=== PATIENT | female | born 2000 | race Caucasian/White ===

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

== ENCOUNTER 2022-01-24 17:01 | Emergency (ER) | payer MEDICAID, SELFPAY ==
[2022-01-24 17:18] VITALS: BP 112/40; PULSE 119; RESP 20; TEMP 36.8; O2SAT 97; BMI 41.0
[2022-01-24 17:37] VITALS: BP 120/58; PULSE 106; TEMP 37.5; O2SAT 98
--- NOTE | 2022-01-24 17:46 | ED.SKABFB ---
HPI - Skin/Abscess/Foreign Bdy General Chief complaint: Skin/Abscess/Foreign Body Stated complaint: cyst Time Seen by Provider: 01/24/22 17:38 Source: patient Mode of arrival: ambulatory Limitations: no limitations History of Present Illness HPI narrative: 21-year-old female past medical history of a cyst presents today with 1 day history of painful bump on left buttock. Patient admits to shaving the area 1 week ago. Tried to drain the cyst plus night by squeezing with fingers, expressed some purulence material as well as blood. Pain has worsened in quality over the period of a day. Patient rates the pain as a 10/10, with the inability to sit on buttocks. Patient has taken Tylenol at home with minimal pain relief. Has admitted to subjective chills, fever, headache, and and redness around affected sidte. Denies shortness of breath, chest pain, nausea, vomiting, diarrhea, dysuria, hematuria, abnormal vaginal discharge, incontinence of stool or urine. In the past when patient has experienced this she had been placed on antibiotics, this was about 3 years ago. Patient not up-to-date on tetanus shot. Related Data Previous Rx's Medication Instructions Recorded cephalexin 500 mg tablet 500 mg PO Q6H 10 days #40 tabs 01/24/22 doxycycline hyclate 100 mg capsule 100 mg PO BID 10 days #20 caps 01/24/22 Allergies Allergy/AdvReac Type Severity Reaction Status Date / Time No Known Allergies Allergy Unverified 10/09/21 10:16 [No Known Allergies*] Review of Systems Review of Systems: Constitutional : + Fever, + Chills, Cardiovascular : No Chest Pain, No SOB Respiratory : No Dyspnea Gastrointestinal : No abdominal pain Musculoskeletal : No Joint Swelling Skin : No rash, positive abscess, no laceration Neuro : No Weakness, No Numbness Psych : No SI/HI Yes all other systems are reviewed and are negative [facility] Past Medical History Attestation statement: The following information was validated with the patient. Source: old records reviewed and nursing notes reviewed Medical History Hypercholesterolemia Social History Social History Advance Directives: No Advance Directives Information Provided: Yes Physical Exam Vital Signs: Vital Signs: Last Vital Signs Temp 99.5 F 01/24/22 17:37 Pulse 106 H 01/24/22 17:37 Resp 20 01/24/22 17:18 BP 120/58 L 01/24/22 17:37 Pulse Ox 98 01/24/22 17:37 O2 Del Method 01/24/22 17:37 BMI result Body Mass Index 41.0 vss Appearance: Alert.? Oriented X3.? No acute distress.? Appears uncomfortable on the exam table, unable to sit on buttocks. Head: Normocephalic, atraumatic, no step-offs or deformities Eyes: Pupils equal, round and reactive to light.? Extraocular eye movements intact. CVS: Normal heart rate and rhythm.? Pulses normal.? Respiratory: No respiratory distress.? Breath sounds normal.? Abdomen: Soft and nontender.? Skin: Skin warm and dry.? Normal skin color.? Normal skin turgor.? Positive small fluctuant area to left buttock with overlying erythema and warmth. Some surrounding induration, no crepitus Extremities: No lower extremity edema.? No calf ttp. 5/5 strength to bilateral upper and lower extremities Neuro: Oriented X 3.? No motor deficit.? No sensory deficit. CN 2-12 intact . NIH stroke scale of 0. Ozdr-vs-[id number], [id number] unremarkable. Ambulating with steady gait normal coordination. Course Reevaluation(s) Reevaluation #1: Fine-needle aspiration was done at bedside small amount of serousanginous fluid with some purulence. Patient tolerated procedure well. Educated on warm water compresses to the area, patient will be discharged home on dual coverage doxycycline and Keflex advised to return with new or worsening symptoms. Advised to come in 3-5 days for wound check. Educated on worrisome signs and symptoms and when to return. If this recurs she should follow-up with her PCP and she may require General surgery follow-up in the future. Time: 18:01 MDM - Skin/Abscess/Foreign Bdy MDM Narrative Medical decision making narrative: 1359 21-year-old female presents with abscess to left buttocks progressively worsening x2 days. Physical exam with positive small fluctuant area to left buttock with overlying erythema and warmth. Some surrounding induration, no crepitus Likely abscess with overlying cellulitis. Unlikely TEN, SJS. No signs of erysipelas. No signs of necrotizing fasciitis Plan at this time fine-needle aspiration of area. Medical Records Attestation: I reviewed the patient's medical records. Lab Data Attestation: I reviewed the patient's lab results. Discharge Plan Discharge Clinical Impression: Abscess, Cellulitis Patient Disposition: Home, Self-Care Instructions: Abscess (ED), Abscess Follow-up (ED) Additional Instructions: Take your medications as prescribed. If you were prescribed antibiotics today, it is important that you take your medication to their entirety, do not skip any doses, do not finish them early. Follow-up with your primary care provider this week. Return to the emergency department with new or worsening symptoms. Such as fevers, chills, chest pain, shortness of breath, nausea, vomiting, dizziness, headache, vision changes, lethargy, numbness, tingling In case of emergency call 911 Apply warm compresses to area three times a day. Return in 3-5 days for wound check Prescriptions: New doxycycline hyclate 100 mg capsule 100 mg PO BID 10 Days Qty: 20 0RF cephalexin 500 mg tablet 500 mg PO Q6H 10 Days Qty: 40 0RF Referrals: [facility] General Surgeons [Provider Group] Tyra Delvalle MD [Primary Care Provider] - 2 days Stand Alone Forms: Work/School Release
--- OUTSIDE RECORDS SUMMARY | 2022-01-24 17:56 | XMS_ITS | Continuity of Care Document ---
:2000 Author Organization [facility] Endocrinology and D [facility] Address [address] [place] [id number]- Care Team Providers Name Role Phone America Noyola MD Primary Care Physician Encounter [facility] Date(s): 08/26/21 - 12/24/21 [facility] Endocrinology and Diabetes [address] [place] [id number] [place] Attending Physician: Bryant Zimmerman MD Admitting Physician: Bryant Zimmerman MD Referring Physician: July Whitt MD Allergies, Adverse Reactions, Alerts No Known Allergies Medications (Vitamin D2) Ergocalciferol 8000 CORRECTION units/mL oral syringe 1 mL By Mouth, 0 Refills, Maintenance, 07/18/18 10:06:30 EDT Start Date: 07/18/18 Status: Ordered Problem List No Known Problems Social History Social History Type Response Smoking Status Never smoker; Tobacco user i n household: No entered on: 05/11/15 Sex Patient Care team information PersonnelName: America Noyola MD Address: Address: [address] [place] [id number]
--- OUTSIDE RECORDS SUMMARY | 2022-01-24 17:56 | XMS_ITS | Continuity of Care Document ---
:2000 Author Organization [facility] Endocrinology and D dannie Address [address] [place] [id number]- Care Team Providers Name Role Phone America Noyola MD Primary Care Physician Encounter [facility] Date(s): 11/24/21 - 12/24/21 [facility] Endocrinology and Diabetes [address] [place] [id number] us Attending Physician: Admtr, Ar8 Admitting Physician: Admtr, Ar8 Referring Physician: Admtr, Ar8 Allergies, Adverse Reactions, Alerts No Known Allergies Medications (Vitamin D2) Ergocalciferol 8000 SENIOR CARE units/mL oral syringe 1 mL By Mouth, 0 Refills, Maintenance, 07/18/18 10:06:30 EDT Start Date: 07/18/18 Status: Ordered Problem List No Known Problems Social History Social History Type Response Smoking Status Never smoker; Tobacco user i n household: No entered on: 05/11/15 Sex Patient Care team information PersonnelName: America Noyola MD Address: Address: [address] [place] [id number]
[2022-01-24] MEDS: Doxycycline Monohydrate 100 MG CAPSULE PO (18:26)
[2022-01-24] MEDS: Diphth,Pertus(ACell),Tet Adult 0.5 ML SYRINGE IM (18:26)
[2022-01-24] MEDS: cephALEXin 500 MG CAPSULE PO (18:26)
== END 2022-01-24 18:54 | disposition home or self-care (01) ==
PROVIDERS: Emergency Provider Emergency Medicine; PCP Internal Medicine
DX: S30.810A Abrasion of lower back and pelvis, initial encounter (principal); L02.31 Cutaneous abscess of buttock; X58.XXXA Exposure to other specified factors, initial encounter; Y93.9 Activity, unspecified; Y92.9 Unspecified place or not applicable; Y99.9 Unspecified external cause status
CPT/HCPCS: 10060; 90471; 90715; 99282; 99284

== ENCOUNTER → 2023-05-06 11:00 | Outpatient (BNVA) | payer OTHER, SELFPAY | PROVIDERS: PCP Internal Medicine; Visit Provider Physician Assistant Medical | DX: S62.355A Nondisplaced fracture of shaft of fourth metacarpal bone, left hand, initial encounter for closed fracture (principal); X50.1XXA Overexertion from prolonged static or awkward postures, initial encounter | CPT/HCPCS: 73130; 99203 ==

== ENCOUNTER 2023-05-20 14:18 | Outpatient (AMB) | payer OTHER, SELFPAY ==
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
[2023-05-20 14:36] VITALS: BMI 37.8
== END 2023-05-20 15:58 | disposition home or self-care (01) ==
PROVIDERS: PCP Internal Medicine; Visit Provider Physician Assistant
DX: S62.605A Fracture of unspecified phalanx of left ring finger, initial encounter for closed fracture (principal)
CPT/HCPCS: 99203

== ENCOUNTER 2023-05-20 16:49 | Outpatient (REF) | payer OTHER, SELFPAY ==
--- NOTE | ~2023-05-20 | XR_ITS ---
EXAMINATION: XR HAND, LEFT CLINICAL INFORMATION: Pain. COMPARISON: Radiograph left hand 05/06/2023. TECHNIQUE: PA, lateral, and oblique views of the left hand. FINDINGS: Stable appearance of a mildly displaced oblique fracture in the fourth metacarpal. No interval injuries. Joint spaces are maintained. No unusual soft tissue calcifications. No radiopaque foreign bodies. XR/XR hand LT min 3V IMPRESSION: Stable mildly displaced oblique fracture in the fourth metacarpal.
== END 2023-05-20 16:50 | disposition home or self-care (01) ==
LOC: HO.HOSX 16:49
PROVIDERS: Visit Provider Physician Assistant
DX: S62.605A Fracture of unspecified phalanx of left ring finger, initial encounter for closed fracture (principal)
CPT/HCPCS: 73130; 99202

== ENCOUNTER 2023-06-18 14:22 | Outpatient (REF) | payer OTHER, SELFPAY | END 2023-06-18 14:23 | disposition home or self-care (01) | LOC: HO.HOSX 14:22 | PROVIDERS: Visit Provider Physician Assistant | DX: Z13.89 Encounter for screening for other disorder (principal) ==